=== PATIENT | female | born 1945 | race Asian ===

== ENCOUNTER 2024-03-07 16:29 | Emergency (ER) | payer MEDICARE, OTHER ==
[~2024-03-07] VITALS: Ht 152.4 cm; Wt 45.4 kg
[2024-03-07 16:37] VITALS: O2SAT 98
== END 2024-03-07 20:10 | disposition home or self-care (01) ==
LOC: ER 16:38
DX: S60.212A Contusion of left wrist, initial encounter (principal); Z86.73 Personal history of transient ischemic attack (TIA), and cerebral infarction without residual deficits; I48.91 Unspecified atrial fibrillation; E78.5 Hyperlipidemia, unspecified; K21.9 Gastro-esophageal reflux disease without esophagitis; W18.39XA Other fall on same level, initial encounter; Y93.89 Activity, other specified; Y92.89 Other specified places as the place of occurrence of the external cause; Y99.8 Other external cause status
CPT/HCPCS: A4606; A4663